=== PATIENT | female | born 1940 | race African-American/Black ===

== ENCOUNTER 2023-06-03 10:48 | Outpatient (AMB) | payer MEDICARE, SELFPAY ==
--- NOTE | 2023-06-03 10:49 | HO.NEPHOV ---
HPI HPI Comments History of Present Illness Details Ms. Barrett is a delightful 82-year-old female who has history of longstanding hypertension. She is not a diabetic. She has history of 1 small kidney. She is known to have a carotid bruit and peripheral arterial disease. Her blood pressure is currently well controlled on medications. She has history of HUGO last year. She denies any coronary artery disease, congestive heart failure, syncope, orthostatic symptoms, cardiac arrhythmia, CVA, renal stone, new bone or back pain pain. She does not have any epistaxis, photosensitivity, new skin rashes, joint swellings, pedal edema or urinary symptoms. She is compliant with her medications. Her serum creatinine is currently at baseline. She had seen vascular surgeon in [facility] as well as Dr. Garnett director cloud transformation with [facility]. She claims that she had Doppler of her renal arteries which is going to be repeated by her director cloud transformation soon, results of which were not available at the time of this office visit for me to review. [facility] Medical History (Updated 06/03/23 @ 10:58 by Kiel Paris MD) Bilateral carotid artery stenosis Hypertension Hyperlipidemia Peripheral vascular disease Surgical History (Updated 06/03/23 @ 10:57 by Mary Torres MA) History of back surgery History of hysterectomy Family History (Updated 06/03/23 @ 09:32 by Mary Torres MA) Mother Heart disease Sister PAD (peripheral artery disease) CAD (coronary artery disease) Social History (Updated 06/03/23 @ 10:57 by Mary Torres MA) Alcohol intake: former Patient Tobacco Use Status: Former Tobacco user Vital Signs 06/03/23 10:50 Height 5 ft 3 in Weight 184 lb 4 oz BMI 32.6 BP 138/60 Blood Pressure Location Rt brachial Position Sitting Pulse 66 Pulse Source Pulse Oximeter Pulse Oximetry (%) 97 Oxygen Delivery Method Room Air Physical Exam Vital Signs: Last Vital Signs Pulse 66 06/03/23 10:50 BP 138/60 06/03/23 10:50 Pulse Ox 97 06/03/23 10:50 Oxygen Delivery Method Room Air 06/03/23 10:50 BMI result Body Mass Index 32.6 Const General: comfortable and no acute distress Orientation/consciousness: patient oriented x3 HEENT Head: Yes normocephalic Mouth: Normal oral and palatal mucosa present Eyes EOM: EOMs intact bilaterally Neck Other: right carotid bruit + Neck: Yes supple Resp Auscultation: clear to auscultation bilaterally Cardio Jugular venous distension: no JVD Rate: regular rate GI Palpation (GI): Soft to palpation Auscultation: normal bowel sounds General: Yes no CVA tenderness Back/Spine/Pelvis Back: no CVA tenderness Skin General skin exam: no rashes or lesions noted Neuro General: patient oriented x3 and moves all extremities Extrem General: Yes no pedal edema Assessment & Plan Assessment & Plan (1) CKD (chronic kidney disease) stage 2, GFR 60-89 ml/min: Code(s): N18.2 - Chronic kidney disease, stage 2 (mild) (2) Hypertension: Code(s): I10 - Essential (primary) hypertension Qualifiers: Hypertension type: primary hypertension Qualified Code(s): I10 - Essential (primary) hypertension Plan Ms. 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 She has hypertension. She is known to have peripheral arterial disease and carotid bruit. She had HUGO last year which has resolved. Her renal functions are currently stable with normal serum potassium. She is tolerating angiotensin receptor sheila. She had Doppler of her renal arteries by her director cloud transformation which apparently is going be repeated soon by him(results were not available for review by me at the time this office visit). She avoids nonsteroidal anti-inflammatories. She is not known to have any proteinuria. She will benefit from a bit of weight loss. I ordered repeat blood work and has requested previous imaging studies for review. Clinically there is no indication for any angioplasty of renal artery even if she has significant stenosis given stable GFR , well controlled blood pressure without any history of heart failure. If indicated, I shall consider doing a formal renal angiogram in the future. She needs to keep her lipid profile optimal. All these have been explained in detail. All questions answered. Follow-up given. Orders: Orders Electrolytes 06/03/23 I10 - Essential (primary) hypertension, N18.2 - Chronic kidney disease, stage 2 (mild) Blood Urea Nitrogen 06/03/23 I10 - Essential (primary) hypertension, N18.2 - Chronic kidney disease, stage 2 (mild) Creatinine 06/03/23 I10 - Essential (primary) hypertension, N18.2 - Chronic kidney disease, stage 2 (mild) Coding Level of Care Code New Pt Level 4 (68650) Diagnoses CKD (chronic kidney disease) stage 2, GFR 60-89 ml/min N18.2 Primary hypertension I10 Hypertension type: primary hypertension Results Reviewed Nephrology Results: No Data to Display
[2023-06-03 10:50] VITALS: BP 138/60; PULSE 66; O2SAT 97; BMI 32.6
== END 2023-06-03 11:17 | disposition home or self-care (01) ==
PROVIDERS: PCP Internal Medicine; Visit Provider Internal Medicine Nephrology
DX: I12.9 Hypertensive chronic kidney disease with stage 1 through stage 4 chronic kidney disease, or unspecified chronic kidney disease (principal); N18.2 Chronic kidney disease, stage 2 (mild)
CPT/HCPCS: 99204

== ENCOUNTER → 2023-06-03 10:48 | Outpatient (BNVA) | payer MEDICARE, SELFPAY | PROVIDERS: PCP Internal Medicine; Visit Provider Internal Medicine Nephrology | DX: I12.9 Hypertensive chronic kidney disease with stage 1 through stage 4 chronic kidney disease, or unspecified chronic kidney disease (principal); N18.2 Chronic kidney disease, stage 2 (mild) | CPT/HCPCS: 99202 ==

== ENCOUNTER 2023-12-18 10:26 | Outpatient (AMB) | payer MEDICARE, SELFPAY ==
--- NOTE | 2023-12-18 10:34 | HO.NEPHOV ---
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 Barrett is a delightful 82-year-old female who has history of longstanding hypertension. She is not a diabetic. She has history of 1 small kidney. She is known to have a carotid bruit and peripheral arterial disease and see Dr Hurtado. Her blood pressure is currently well controlled on medications. She has history of HUGO last year. She denies any coronary artery disease, congestive heart failure, syncope, orthostatic symptoms, cardiac arrhythmia, CVA, renal stone, new bone or back pain pain. She does not have any epistaxis, photosensitivity, new skin rashes, joint swellings, pedal edema or urinary symptoms. She is compliant with her medications. Her serum creatinine is currently close to baseline. She had seen Dr. Garnett neon sign erector with [facility]. [facility] Medical History (Updated 12/18/23 @ 11:00 by Kiel Paris MD) Bilateral carotid artery stenosis Hypertension Hyperlipidemia Peripheral vascular disease Surgical History History of back surgery History of hysterectomy Family History Mother Heart disease Sister PAD (peripheral artery disease) CAD (coronary artery disease) Social History Alcohol intake: former Patient Tobacco Use Status: Former Tobacco user Physical Exam Vital Signs: Last Vital Signs BP 118/62 12/18/23 10:35 BMI result Body Mass Index 32.1 Const General: comfortable and no acute distress Orientation/consciousness: patient oriented x3 HEENT Head: Yes normocephalic Mouth: Normal oral and palatal mucosa present Eyes EOM: EOMs intact bilaterally Neck Neck: Yes supple Resp Auscultation: clear to auscultation bilaterally Cardio Jugular venous distension: no JVD Rate: regular rate GI Palpation (GI): Soft to palpation Auscultation: normal bowel sounds General: Yes no CVA tenderness Back/Spine/Pelvis Back: no CVA tenderness Skin General skin exam: no rashes or lesions noted Neuro General: patient oriented x3 and moves all extremities Extrem General: Yes no pedal edema Results Reviewed Nephrology Results: No Data to Display Assessment & Plan Assessment & Plan (1) Hypertension: Code(s): I10 - Essential (primary) hypertension Category: Medical Qualifiers: Hypertension type: primary hypertension Qualified Code(s): I10 - Essential (primary) hypertension (2) CKD stage 3a, GFR 45-59 ml/min: Code(s): N18.31 - Chronic kidney disease, stage 3a Category: Medical Plan Ms. Barrett has very CKD from renovascular disease. She has hypertension. She is known to have peripheral arterial disease and carotid bruit. She is tolerating angiotensin receptor sheila which I shall back off if her serum creatinine rises. I ordered Doppler of her renal arteries . She avoids nonsteroidal anti-inflammatories. She is not known to have any proteinuria. She will benefit from a bit of weight loss. I ordered repeat blood work . Clinically there is no indication for any angioplasty of renal artery even if she has significant stenosis given stable GFR , well controlled blood pressure without any history of heart failure. If indicated, I shall consider doing a formal renal angiogram in the future. She needs to keep her lipid profile optimal. All these have been explained in detail. All questions answered. Follow-up given. Orders: Orders Creatinine Today I10 - Essential (primary) hypertension, N18.31 - Chronic kidney disease, stage 3a Blood Urea Nitrogen Today I10 - Essential (primary) hypertension, N18.31 - Chronic kidney disease, stage 3a US renal doppler Today I10 - Essential (primary) hypertension, N18.31 - Chronic kidney disease, stage 3a US renal BI Today I10 - Essential (primary) hypertension, N18.31 - Chronic kidney disease, stage 3a Electrolytes Today I10 - Essential (primary) hypertension, N18.31 - Chronic kidney disease, stage 3a Coding Level of Care Code Est Pt Level 4 (28460) Diagnoses Primary hypertension I10 Hypertension type: primary hypertension CKD stage 3a, GFR 45-59 ml/min N18.31
[2023-12-18 10:35] VITALS: BP 118/62; BMI 32.1
== END 2023-12-18 11:05 | disposition home or self-care (01) ==
PROVIDERS: PCP Internal Medicine; Visit Provider Internal Medicine Nephrology
DX: I10 Essential (primary) hypertension (principal); N18.31 Chronic kidney disease, stage 3a
CPT/HCPCS: 99214

== ENCOUNTER → 2023-12-18 10:26 | Outpatient (BNVA) | payer MEDICARE, SELFPAY | PROVIDERS: PCP Internal Medicine; Visit Provider Internal Medicine Nephrology | DX: I12.9 Hypertensive chronic kidney disease with stage 1 through stage 4 chronic kidney disease, or unspecified chronic kidney disease (principal); N18.31 Chronic kidney disease, stage 3a | CPT/HCPCS: 99212 ==

== ENCOUNTER 2023-12-25 13:42 | Outpatient (REF) | payer MEDICARE, SELFPAY ==
[2023-12-25 18:13] LABS: Anion Gap 12 (12-20); Blood Urea Nitrogen 40 mg/dL (9-16); Carbon Dioxide 23 mmol/L (22-29); Chloride 106 mmol/L (96-108); Estimated Glomerular Filt Rate 35; Potassium 5.3 mmol/L (3.3-5.1); Sodium 136 mmol/L (135-145)
== END 2023-12-25 13:43 | disposition home or self-care (01) ==
LOC: HO.HKASLDS 13:42
PROVIDERS: Visit Provider Internal Medicine Nephrology
DX: I12.9 Hypertensive chronic kidney disease with stage 1 through stage 4 chronic kidney disease, or unspecified chronic kidney disease (principal); N18.2 Chronic kidney disease, stage 2 (mild); N18.31 Chronic kidney disease, stage 3a
CPT/HCPCS: 36415; 80051; 82565; 84520

== ENCOUNTER 2023-12-30 09:43 | Outpatient (REF) | payer MEDICARE, SELFPAY ==
--- NOTE | ~2023-12-30 | US_ITS ---
EXAMINATION: ULTRASOUND RENAL WITH DOPPLER CLINICAL INFORMATION: Chronic kidney disease, stage 3A. Need to rule out renal artery stenosis. COMPARISON: None. TECHNIQUE: Real-time grayscale, color Doppler, and duplex Doppler evaluation of the kidneys and renal vasculature was performed. FINDINGS: RENAL MEASUREMENTS: Right: 8.6 x 4.0 x 4.1 cm (Sag x AP x TV) Left: 9.3 x 4.9 x 4.1 cm (Sag x AP x TV) The renal parenchyma appears echogenic. No hydronephrosis or nephrolithiasis. DOPPLER INTERROGATION: AORTA: Mid aorta: 112 cm/sec RIGHT MAIN RENAL ARTERY: Proximal: 165 cm/sec Mid: 170 cm/sec Distal: 140 cm/sec LEFT MAIN RENAL ARTERY: Proximal: 154 cm/sec Mid: 146 cm/sec Distal: 138 cm/sec RENAL-AORTIC RATIO (RAR): Right: Not calculated due to mid aortic velocity outside of range 40-100 cm/s making RAR inaccurate. Left: Not calculated due to mid aortic velocity outside of range 40-100 cm/s making RAR inaccurate. SEGMENTAL RESISTIVE INDICES: Right: 0.75-0.84 Left: 0.78-0.85 RENAL VEINS: Right: Patent with normal waveform. Left: Patent with normal waveform. US/US renal doppler IMPRESSION: Small echogenic kidneys with elevated resistive indices consistent with chronic medical renal disease. No evidence of hemodynamically significant renal artery stenosis.
--- NOTE | ~2023-12-30 | US_ITS ---
EXAMINATION: ULTRASOUND RENAL WITH DOPPLER CLINICAL INFORMATION: Chronic kidney disease, stage 3A. Need to rule out renal artery stenosis. COMPARISON: None. TECHNIQUE: Real-time grayscale, color Doppler, and duplex Doppler evaluation of the kidneys and renal vasculature was performed. FINDINGS: RENAL MEASUREMENTS: Right: 8.6 x 4.0 x 4.1 cm (Sag x AP x TV) Left: 9.3 x 4.9 x 4.1 cm (Sag x AP x TV) The renal parenchyma appears echogenic. No hydronephrosis or nephrolithiasis. DOPPLER INTERROGATION: AORTA: Mid aorta: 112 cm/sec RIGHT MAIN RENAL ARTERY: Proximal: 165 cm/sec Mid: 170 cm/sec Distal: 140 cm/sec LEFT MAIN RENAL ARTERY: Proximal: 154 cm/sec Mid: 146 cm/sec Distal: 138 cm/sec RENAL-AORTIC RATIO (RAR): Right: Not calculated due to mid aortic velocity outside of range 40-100 cm/s making RAR inaccurate. Left: Not calculated due to mid aortic velocity outside of range 40-100 cm/s making RAR inaccurate. SEGMENTAL RESISTIVE INDICES: Right: 0.75-0.84 Left: 0.78-0.85 RENAL VEINS: Right: Patent with normal waveform. Left: Patent with normal waveform. US/US renal BI IMPRESSION: Small echogenic kidneys with elevated resistive indices consistent with chronic medical renal disease. No evidence of hemodynamically significant renal artery stenosis.
== END 2023-12-30 09:44 | disposition home or self-care (01) ==
LOC: HO.HMGCX 09:43
PROVIDERS: PCP Internal Medicine; Visit Provider Internal Medicine Nephrology
DX: I12.9 Hypertensive chronic kidney disease with stage 1 through stage 4 chronic kidney disease, or unspecified chronic kidney disease (principal); N18.31 Chronic kidney disease, stage 3a
CPT/HCPCS: 76775; 93975

== ENCOUNTER 2024-01-23 13:57 | Outpatient (AMB) | payer MEDICARE, SELFPAY ==
[2024-01-23 14:26] VITALS: BP 134/60; PULSE 59; O2SAT 96; BMI 32.6
--- NOTE | 2024-01-23 14:26 | HO.NEPHOV_ITS ---
Vital Signs 01/23/24 14:26 Height 5 ft 3 in Weight 184 lb BMI 32.6 BP 134/60 Blood Pressure Location Rt brachial Position Sitting Pulse 59 Pulse Source Pulse Oximeter Pulse Oximetry (%) 96 Oxygen Delivery Method Room Air Intake Visit Reasons: Sooner Appt per [employer] Teacher Required: No Accompanied by: Self / Same As Patient Allergies moxifloxacin Allergy (Verified 01/23/24 14:29) Unknown nitrofurantoin Allergy (Verified 01/23/24 14:29) Unknown tetanus and diphtheria toxoids Allergy (Verified 01/23/24 14:29) Unknown HPI Comments Details: Ms. Barrett is a delightful 82-year-old female who has history of longstanding hypertension. She is not a diabetic. She has history of 1 small kidney. She is known to have a carotid bruit and peripheral arterial disease and see Dr Hurtado. Her blood pressure is currently well controlled on medications. She has history of HUGO last year. She denies any coronary artery disease, congestive heart failure, syncope, orthostatic symptoms, cardiac arrhythmia, CVA, renal stone, new bone or back pain pain. She does not have any epistaxis, photosensitivity, new skin rashes, joint swellings, pedal edema or urinary symptoms. She is compliant with her medications. Her serum creatinine is currently close to baseline. She had seen Dr. Garnett compliance technician with [facility]. Her K is high normal. [facility] Medical History (Updated 01/23/24 @ 14:42 by Kiel Paris MD) Bilateral carotid artery stenosis Hypertension Hyperlipidemia Peripheral vascular disease Surgical History History of back surgery History of hysterectomy Family History Mother Heart disease Sister PAD (peripheral artery disease) CAD (coronary artery disease) Social History Alcohol intake: former Patient Tobacco Use Status: Former Tobacco user Physical Exam Vital Signs: Last Vital Signs Pulse 59 01/23/24 14:26 BP 134/60 01/23/24 14:26 Pulse Ox 96 01/23/24 14:26 Oxygen Delivery Method Room Air 01/23/24 14:26 BMI result Body Mass Index 32.6 Const General: comfortable and no acute distress Orientation/consciousness: patient oriented x3 HEENT Head: Yes normocephalic Mouth: Normal oral and palatal mucosa present Eyes EOM: EOMs intact bilaterally Neck Neck: Yes supple Resp Auscultation: clear to auscultation bilaterally Cardio Jugular venous distension: no JVD Rate: regular rate GI Palpation (GI): Soft to palpation Auscultation: normal bowel sounds General: Yes no CVA tenderness Back/Spine/Pelvis Back: no CVA tenderness Skin General skin exam: no rashes or lesions noted Neuro General: patient oriented x3 and moves all extremities Extrem General: Yes no pedal edema Results Reviewed Nephrology Results: Sodium 136 mmol/L (135-145) 12/25/23 Potassium 5.3 mmol/L (3.3-5.1) H 12/25/23 Chloride 106 mmol/L (96-108) 12/25/23 Carbon Dioxide 23 mmol/L (22-29) 12/25/23 BUN 40 mg/dL (9-16) H 12/25/23 Creatinine 1.43 mg/dL (0.5-1.4) H 12/25/23 Renal US 12/30/23 Assessment & Plan Assessment & Plan (1) CKD stage 3a, GFR 45-59 ml/min: Code(s): N18.31 - Chronic kidney disease, stage 3a Category: Medical (2) Hypertension: Code(s): I10 - Essential (primary) hypertension Category: Medical Qualifiers: Hypertension type: primary hypertension Qualified Code(s): I10 - Essential (primary) hypertension (3) Hyperkalemia: Code(s): E87.5 - Hyperkalemia Category: Medical Plan Ms. Barrett has very CKD from renovascular disease. She has hypertension. She is known to have peripheral arterial disease and carotid bruit. She is tolerating angiotensin receptor sheila which I shall back off if her serum creatinine rises. She avoids nonsteroidal anti-inflammatories. She is not known to have any proteinuria. She will benefit from a bit of weight loss. I ordered Kionex 30 Gram once a week and repeat blood work . Clinically there is no indication for any angioplasty of renal artery even if she has significant stenosis given stable GFR , well controlled blood pressure without any history of heart failure. If indicated, I shall consider doing a formal renal angiogram in the future. She needs to keep her lipid profile optimal. All these have been explained in detail. All questions answered. Follow-up given Orders: Orders Creatinine Today E87.5 - Hyperkalemia, I10 - Essential (primary) hypertension, N18.31 - Chronic kidney disease, stage 3a Blood Urea Nitrogen Today E87.5 - Hyperkalemia, I10 - Essential (primary) hypertension, N18.31 - Chronic kidney disease, stage 3a Electrolytes Today E87.5 - Hyperkalemia, I10 - Essential (primary) hypertension, N18.31 - Chronic kidney disease, stage 3a Medications: New sodium polystyrene sulfonate 30 grams orally once a week; 453.6 grams 3RF Coding Level of Care Code Est Pt Level 4 (19684) Diagnoses CKD stage 3a, GFR 45-59 ml/min N18.31 Primary hypertension I10 Hypertension type: primary hypertension Hyperkalemia E87.5
== END 2024-01-23 14:49 | disposition home or self-care (01) ==
PROVIDERS: PCP Internal Medicine; Visit Provider Internal Medicine Nephrology
DX: N18.31 Chronic kidney disease, stage 3a (principal); I10 Essential (primary) hypertension; E87.5 Hyperkalemia
CPT/HCPCS: 99214

== ENCOUNTER → 2024-01-23 13:57 | Outpatient (BNVA) | payer MEDICARE, SELFPAY | PROVIDERS: PCP Internal Medicine; Visit Provider Internal Medicine Nephrology | DX: I12.9 Hypertensive chronic kidney disease with stage 1 through stage 4 chronic kidney disease, or unspecified chronic kidney disease (principal); N18.31 Chronic kidney disease, stage 3a; E87.5 Hyperkalemia; N27.0 Small kidney, unilateral; I73.9 Peripheral vascular disease, unspecified; Z79.899 Other long term (current) drug therapy | CPT/HCPCS: 99212 ==

== ENCOUNTER 2024-04-01 11:02 | Outpatient (AMB) | payer MEDICARE, SELFPAY ==
--- NOTE | 2024-04-01 11:25 | HO.NEPHOV ---
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 Barrett is a delightful 82-year-old female who has history of longstanding hypertension. She is not a diabetic. She has history of 1 small kidney. She is known to have a carotid bruit and peripheral arterial disease and see Dr Hurtado. Her blood pressure is currently well controlled on medications. She has history of HUGO last year. She denies any coronary artery disease, congestive heart failure, syncope, orthostatic symptoms, cardiac arrhythmia, CVA, renal stone, new bone or back pain pain. She does not have any epistaxis, photosensitivity, new skin rashes, joint swellings, pedal edema or urinary symptoms. She is compliant with her medications. Her serum creatinine is currently close to baseline. She had seen Dr. Garnett loading supervisor with [facility]. Her K is high normal [facility] Medical History (Updated 01/23/24 @ 14:42 by Kiel Paris MD) Bilateral carotid artery stenosis Hypertension Hyperlipidemia Peripheral vascular disease Surgical History History of back surgery History of hysterectomy Family History Mother Heart disease Sister PAD (peripheral artery disease) CAD (coronary artery disease) Social History Alcohol intake: former Patient Tobacco Use Status: Former Tobacco user Review of Systems Const All systems reviewed & are unremarkable except as noted in HPI and below Physical Exam Vital Signs: Last Vital Signs Pulse 60 04/01/24 11:26 BP 120/50 L 04/01/24 11:26 Pulse Ox 99 04/01/24 11:26 Oxygen Delivery Method Room Air 04/01/24 11:26 BMI result Body Mass Index 31.4 Const General: comfortable and no acute distress Orientation/consciousness: patient oriented x3 HEENT Head: Yes normocephalic Mouth: Normal oral and palatal mucosa present Eyes EOM: EOMs intact bilaterally Neck Neck: Yes supple Resp Auscultation: clear to auscultation bilaterally Cardio Jugular venous distension: no JVD Rate: regular rate GI Palpation (GI): Soft to palpation Auscultation: normal bowel sounds General: Yes no CVA tenderness Back/Spine/Pelvis Back: no CVA tenderness Skin General skin exam: no rashes or lesions noted Neuro General: patient oriented x3 and moves all extremities Extrem General: Yes no pedal edema Results Reviewed Nephrology Results: Sodium 136 mmol/L (135-145) 12/25/23 Potassium 5.3 mmol/L (3.3-5.1) H 12/25/23 Chloride 106 mmol/L (96-108) 12/25/23 Carbon Dioxide 23 mmol/L (22-29) 12/25/23 BUN 40 mg/dL (9-16) H 12/25/23 Creatinine 1.43 mg/dL (0.5-1.4) H 12/25/23 Renal US 12/30/23 Assessment & Plan Assessment & Plan (1) CKD stage 3a, GFR 45-59 ml/min: Code(s): N18.31 - Chronic kidney disease, stage 3a Category: Medical (2) Hypertension: Code(s): I10 - Essential (primary) hypertension Category: Medical Qualifiers: Hypertension type: primary hypertension Qualified Code(s): I10 - Essential (primary) hypertension (3) Hyperkalemia: Code(s): E87.5 - Hyperkalemia Category: Medical Plan Ms. aBrrett has very CKD from renovascular disease. She has hypertension. She is known to have peripheral arterial disease and carotid bruit. She is tolerating angiotensin receptor sheila which I shall back off if her serum creatinine rises. She avoids nonsteroidal anti-inflammatories. She is not known to have any proteinuria. She will benefit from a bit of weight loss. Clinically there is no indication for any angioplasty of renal artery even if she has significant stenosis given stable GFR , well controlled blood pressure without any history of heart failure. If indicated, I shall consider doing a formal renal angiogram in the future. She needs to keep her lipid profile optimal. All these have been explained in detail. All questions answered. Follow-up given Orders: Orders Blood Urea Nitrogen 4 Months E87.5 - Hyperkalemia, I10 - Essential (primary) hypertension, N18.31 - Chronic kidney disease, stage 3a Creatinine 4 Months E87.5 - Hyperkalemia, I10 - Essential (primary) hypertension, N18.31 - Chronic kidney disease, stage 3a Electrolytes 4 Months E87.5 - Hyperkalemia, I10 - Essential (primary) hypertension, N18.31 - Chronic kidney disease, stage 3a Coding Level of Care Code Est Pt Level 4 (53811) Diagnoses CKD stage 3a, GFR 45-59 ml/min N18.31 Primary hypertension I10 Hypertension type: primary hypertension Hyperkalemia E87.5
[2024-04-01 11:26] VITALS: BP 120/50; PULSE 60; O2SAT 99; BMI 31.4
== END 2024-04-01 11:51 | disposition home or self-care (01) ==
PROVIDERS: PCP Internal Medicine; Visit Provider Internal Medicine Nephrology
DX: N18.31 Chronic kidney disease, stage 3a (principal); I10 Essential (primary) hypertension; E87.5 Hyperkalemia
CPT/HCPCS: 99214

== ENCOUNTER → 2024-04-01 11:02 | Outpatient (BNVA) | payer MEDICARE, SELFPAY | PROVIDERS: PCP Internal Medicine; Visit Provider Internal Medicine Nephrology | DX: I12.9 Hypertensive chronic kidney disease with stage 1 through stage 4 chronic kidney disease, or unspecified chronic kidney disease (principal); N18.31 Chronic kidney disease, stage 3a; E87.5 Hyperkalemia | CPT/HCPCS: 99212 ==

== ENCOUNTER 2024-08-10 11:20 | Outpatient (AMB) | payer MEDICARE, SELFPAY ==
--- NOTE | 2024-08-10 11:42 | HO.NEPHOV_ITS ---
Vital Signs 08/10/24 11:44 Height 5 ft 3 in Weight 168 lb 4 oz BMI 29.8 BP 130/60 Blood Pressure Location Lt brachial Position Sitting Pulse 62 Pulse Source Pulse Oximeter Pulse Oximetry (%) 100 Oxygen Delivery Method Room Air Intake Visit Reasons: july follow up-[facility] National Sales Consultant Required: No Accompanied by: Self / Same As Patient Allergies moxifloxacin Allergy (Verified 08/10/24 11:44) Unknown nitrofurantoin Allergy (Verified 08/10/24 11:44) Unknown tetanus and diphtheria toxoids Allergy (Verified 08/10/24 11:44) Unknown HPI Comments Details: Ms. Barrett is a delightful 82-year-old female who has history of longstanding hypertension. She is a pre diabetic. She has history of 1 small kidney. She is known to have a carotid bruit and peripheral arterial disease and see Dr Hurtado. Her blood pressure is currently well controlled on medications. She has history of HUGO last year. She denies any coronary artery disease, congestive heart failure, syncope, orthostatic symptoms, cardiac arrhythmia, CVA, renal stone, new bone or back pain pain. She does not have any epistaxis, photosensitivity, new skin rashes, joint swellings, pedal edema or urinary symptoms. She is compliant with her medications. Her serum creatinine is currently close to baseline. She had seen Dr. Garnett mixing machine tender cork rod with [facility]. Her K is normal [facility] Medical History (Updated 01/23/24 @ 14:42 by Kiel Paris MD) Bilateral carotid artery stenosis Hypertension Hyperlipidemia Peripheral vascular disease Surgical History History of back surgery History of hysterectomy Family History Mother Heart disease Sister PAD (peripheral artery disease) CAD (coronary artery disease) Social History Alcohol intake: former Patient Tobacco Use Status: Former Tobacco user Review of Systems Const All systems reviewed & are unremarkable except as noted in HPI and below Physical Exam Vital Signs: Last Vital Signs Pulse 62 08/10/24 11:44 BP 130/60 08/10/24 11:44 Pulse Ox 100 08/10/24 11:44 Oxygen Delivery Method Room Air 08/10/24 11:44 BMI result Body Mass Index 29.8 Const General: comfortable and no acute distress Orientation/consciousness: patient oriented x3 HEENT Head: Yes normocephalic Mouth: Normal oral and palatal mucosa present Eyes EOM: EOMs intact bilaterally Neck Neck: Yes supple Resp Auscultation: clear to auscultation bilaterally Cardio Jugular venous distension: no JVD Rate: regular rate GI Palpation (GI): Soft to palpation Auscultation: normal bowel sounds General: Yes no CVA tenderness Back/Spine/Pelvis Back: no CVA tenderness Skin General skin exam: no rashes or lesions noted Neuro General: patient oriented x3 and moves all extremities Extrem General: Yes no pedal edema Assessment & Plan Assessment & Plan (1) Hypertension: Code(s): I10 - Essential (primary) hypertension Category: Medical Qualifiers: Hypertension type: primary hypertension Qualified Code(s): I10 - Essential (primary) hypertension (2) CKD stage 3a, GFR 45-59 ml/min: Code(s): N18.31 - Chronic kidney disease, stage 3a Category: Medical (3) Hyperkalemia: Code(s): E87.5 - Hyperkalemia Category: Medical Plan 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 She has hypertension. She is known to have peripheral arterial disease and carotid bruit. She is tolerating angiotensin receptor sheila which I shall back off if her serum creatinine rises. She avoids nonsteroidal anti-inflammatories. She is not known to have any proteinuria. She will benefit from a bit of weight loss. Clinically there is no indication for any angioplasty of renal artery even if she has significant stenosis given stable GFR , well controlled blood pressure without any history of heart failure. If indicated, I shall consider doing a formal renal angiogram in the future. She needs to keep her lipid profile optimal. All these have been explained in detail. All questions answered. Follow-up given Orders: Orders Creatinine 6 Months E87.5 - Hyperkalemia, I10 - Essential (primary) hypertension, N18.31 - Chronic kidney disease, stage 3a Blood Urea Nitrogen 6 Months E87.5 - Hyperkalemia, I10 - Essential (primary) hypertension, N18.31 - Chronic kidney disease, stage 3a Electrolytes 6 Months E87.5 - Hyperkalemia, I10 - Essential (primary) hypertension, N18.31 - Chronic kidney disease, stage 3a Medications: Refilled sodium polystyrene sulfonate 30 grams orally once a week; 453.6 grams 3RF Coding Level of Care Code Est Pt Level 4 (89868) Diagnoses Primary hypertension I10 Hypertension type: primary hypertension CKD stage 3a, GFR 45-59 ml/min N18.31 Hyperkalemia E87.5
[2024-08-10 11:44] VITALS: BP 130/60; PULSE 62; O2SAT 100; BMI 29.8
--- OUTSIDE RECORDS SUMMARY | 2024-08-10 14:07 | XMS_ITS | Clinical Summary ---
Author Organization [facility] Address [address] [place] [address] Care Team Providers Care Bulwark Carpenter Name Role Phone Abraham Courtney MD Primary Care Provider [phone] Medications Medication Sig Dispensed Refills Start Date End Date Status spironolactone-hydroch lorothiazide (ALDACTAZIDE) 25-25 MG per tablet Take 1 tablet by mouth daily. 0 Active losartan (COZAAR) tablet 50 mg Take 100 mg by mouth daily. 0 Active amLODIPine (NORVASC) tablet 10 mg Take 10 mg by mouth daily. 0 Active omeprazole (PRILOSEC) 20 MG capsule Take 20 mg by mouth daily. 0 Active aspirin EC 81 MG tablet Take 81 mg by mouth daily. 0 Active nebivolol (BYSTOLIC) 10 MG tablet Take 10 mg by mouth daily. 0 Active vitamin B-6 (PYRIDOXINE) 25 MG tablet Take 25 mg by mouth daily. 0 Active Social History Tobacco Use Types Packs/Day Years Used Date Smoking Tobacco: Former Smokeless Tobacco: Former Alcohol Use Standard Drinks/Week Comments No 0 (1 standard drink = 0.6 oz pur e alcohol) Sex and Gender Information Value Date Recorded Sex Assigned at Not on file Gender Identity Not on file Sexual Orientation Not on file Plan of Treatment Health Maintenance Due Date Last Done Comments COVID-19 Vaccine (#1) 03/25/1941 Depression Screening 1954 Preventative Health Evaluation 1960 DTap / Tdap / Td (1 - Tdap) 1961 Shingrix-Zoster Vaccine (1 of 2) 1992 Fall Risk Assessment 09/23/2007 Osteoporosis Screening (DEXA Scan) 09/23/2007 Pneumococcal Vaccine (1 of 1 - PCV) 09/23/2007 RSV Adult > 60+ Yrs or Pregn ant (1 - 1-dose 75+ series) 2017 Influenza Vaccine (#1) 2024 Hepatitis B Vaccines Aged Out No long er eligible based on patient's age to complete this topic RSV Ped < 20 months Aged Out No longe r eligible based on patient's age to complete this topic Care Teams Bulwark Carpenter Relationship Specialty Start Date End Date Abraham Courtney MD PCP - General Internal Medicine 10/24/16
--- OUTSIDE RECORDS SUMMARY | 2024-08-10 14:07 | XMS_ITS | Clinical Summary ---
Author Organization [address] Address [address] [place] [phone] Phone Care Team Providers Care Stamper Blocker Name Role Phone Abraham Reyes MD Primary Care Provider [phone] Allergies Active Allergy Reactions Criticality Noted Date Comments Moxifloxacin 02/05/2022 Tetanus And Diphtheria Toxoids Low 02/05 Tetanus-Diphtheria Toxoids-Td 2018 Medications atorvastatin (LIPITOR) 80 mg tablet TAKE 1 TABLET BY MOUTH EVERY DAY NEED UPDATED INS 01/31/2023 Active spironolactone-h ydroCHLOROthiazi de (ALDACTAZIDE) 25-25 mg per tablet Take 1 tablet by mouth daily. Active losartan (COZAAR) 100 mg tablet Take 100 mg by mouth daily. Active amlodipine besylate (AMLODIPINE ORAL) Take 10 mg by mouth. Active omeprazole (PriLOSEC) [address] capsule Take 10 mg by mouth daily. Active carvediloL (COREG) 12.5 mg tablet Take 12.5 mg by mouth 2 times daily (with meals). Active aspirin 81 mg chewable tablet Take 81 mg by mouth daily. Active hydroCHLOROthiaz janette (HYDRODIURIL) 25 mg tablet Take 1 tablet (25 mg total) by mouth 1 (one) time each day. Active sodium polystyrene (KAYEXALATE) powder Take 30 g by mouth 1 (one) time. Active Active Problems Problem Noted Date Diagnosed Date Sleep apnea 06/10/2024 MIRANDA (dyspnea on exertion) 07/30/2023 Overview (05/05/2024): Last Assessment & Plan: She does endorse increased dyspnea on exertion since her last office visit. I will update nuclear stress testing as well as an echocardiogram to help further evaluate for ischemic process as well as any valvular abnormalities. PND (paroxysmal nocturnal dyspnea) 07/30/2023 Overview (05/05/2024): Last Assessment & Plan: I have ordered a sleep study to further evaluate for obstructive sleep apnea which could likely be contributing to the patient's symptoms as well as daytime fatigue. Precordial pain 02/07/2022 HTN (hypertension) 02/15/2019 Overview (05/05/2024): Last Assessment & Plan: Blood pressure well-controlled during today's exam with a reading of 120/72. She will continue on her current dose of spironolactone/hydrochlorothiazide as well as amlodipine and losartan. She will continue with diet and lifestyle modification to help further assist in lowering blood pressure. Encouraged to follow a low-salt low-fat diet, make purposeful strides towards weight loss, and engage in routine aerobic exercise as tolerated. Bilateral carotid artery stenosis 08/31/2018 Overview (05/05/2024): Last Assessment & Plan: Bilateral carotid bruits appreciated upon exam today. Right greater than left. Patient is now ready to pursue follow-up with Dr. Flowers for right carotid endarterectomy. She will continue on aspirin and statin therapy. Encounters Date Type Department Care Team Description 07/07/[address] [facility] [address] [place] [address] Karla Norman MA Referral (Sleep Medicine) 06/09/2024 9:20 AM EST Office Visit [facility] [address] [place] [phone] Smith Noonan MD Hypertension, unspecified type (Primary Dx); Sleep apnea, unspecified type from Last 3 Months Medical History Medical History Date Comments Bilateral carotid artery stenosis 08/31/2018 DX:Bilateral carotid artery stenosis HTN (hypertension) 02/15/2019 DX:HTN (hyper tension) Family History Medical History Relation Name Comments CABG Mother Other: Cardiac Other Relation Name Status Comments Mother Other Social History Tobacco Use Types Packs/Day Years Used Date Smoking Tobacco: Former Smokeless Tobacco: Never Alcohol Use Standard Drinks/Week Comments Never 0 (1 standard drink = 0.6 oz pur e alcohol) Comments Unknown Sex and Gender Information Value Date Recorded Sex Assigned at Not on file Legal Sex Female 9:53 AM EST Gender Identity Not on file Sexual Orientation Not on file Obstetrics History Last Filed Vital Signs Vital Sign Reading Time Taken Comments Blood Pressure 122/72 06/09/2024 9:38 AM EST Pulse 60 06/09/2024 9:38 AM EST Temperature - - Respiratory Rate - - Oxygen Saturation 97% 06/09/2024 9:38 AM EST Inhaled Oxygen Concentration - - Weight 78.5 kg (173 lb) 06/09/2024 9:38 AM EST Height 160 cm (5' 3 ) 06/09/2024 9:38 AM EST Body Mass Index 30.65 06/09/2024 9:38 AM EST Plan of Treatment Upcoming Encounters Date Type Department Care Team (Late st Contact Info) Description 11/30/2024 10:45 AM EDT Ancillary Procedure [facility] [address] [place] [address] 12/20/2024 9:40 AM EDT Office Visit [facility] [address] [place] [address] Jennifer Mccormick NP [address] [place] [address] [place] [address] 12/31/2024 10:30 AM EDT Office Visit [facility] [place] [address] [place] [address] Ayden Berg MD [address] [place] [address] Health Maintenance Due Date Last Done Comments DTaP,Tdap,and Td Vaccines (1 - Tdap) 1961 Pneumococcal Vaccine: 50+ Years (1 of 1 - PCV) 1992 Zoster Vaccines (1 of 2) 1992 RSV Immunization Patients 60+ Years Old (1 - 1-dose 75+ series) 2017 Depression Screening 04/26/2022 Falls Risk Assessment 04/26/2022 Medicare Annual Wellness Visit 04/26/2022 Social Influencers of Health Screening 04/26/2022 COVID-19 Vaccine ( season) 2024 03/06/2023, 02/20/2022, 11/13/2021, Additional history exists Hypertension/CHF/CAD Annual BMP Blood Test 03/30/2025 03/30/2024, 04/25/2023 Cholesterol Screening (Lipid Panel) 08/12/2028 08/13/2023 Osteoporosis Screening (Bone Density Screening) 12/01/2033 12/02/2023, 02/05/2019 Influenza Vaccine Completed 06/02/2024, , 03/15/2022, Additional history exists HIB Vaccines Aged Out No longer eligi ble based on patient's age to complete this topic HPV Vaccines Aged Out No longer eligi ble based on patient's age to complete this topic Hepatitis A Vaccines Aged Out No long er eligible based on patient's age to complete this topic Hepatitis B Vaccines Aged Out No long er eligible based on patient's age to complete this topic IPV Vaccines Aged Out No longer eligi ble based on patient's age to complete this topic MMR Vaccines Aged Out No longer eligi ble based on patient's age to complete this topic Meningococcal ACWY Vaccine Aged Out N o longer eligible based on patient's age to complete this topic Meningococcal B Vacine Aged Out No lo nger eligible based on patient's age to complete this topic RSV Immunization Patients Under 20 months Aged Out No longer eligible based on patient's age to complete this topic Varicella Vaccines Aged Out No longer eligible based on patient's age to complete this topic Procedures Procedure Name Priority Date/Time Associated Diagnosis Comments ECG 12-LEAD Routine 06/09/2024 9:46 AM EST Hypertension, unspecified type CREATININE, SERUM Routine 03/30/2024 10: 30 AM EST Hyperkaluria Chronic kidney disease, stage 3a (CMS/HCC) Hypertension, essential MANUELA DEXA AXIAL SKELETON Routine 12/02/2023 8:38 AM EDT Age-related osteoporosis without current pathological fracture LIPID PANEL Routine 08/13/2023 from Last 3 Months or Most Recently Relevant to Health Maintenance Results * ECG 12 lead (06/09/2024 9:46 AM EST) Ventricular Rate ECG 60 BPM GEMUSE Atrial Rate 60 BPM GEMUSE P-R Interval 214 ms GEMUSE QRS Duration 90 ms GEMUSE Q-T Interval 384 ms GEMUSE QTc 384 ms GEMUSE P Wave Waite 61 degrees GEMUSE R Waite 27 degrees GEMUSE T Waite 15 degrees GEMUSE ECG Interpretation Sinus rhythm with 1st degree A-V block Otherwise normal ECG When compared with ECG of 01-MAR-2019 11:23, No significant change was found Confirmed by SMITH NOONAN ([id number]) on 06/10/2024 6:33:52 AM GEMUSE 06/09/2024 9:46 AM EST 06/10/2024 6:33 AM EST us Smith Noonan MD ECG ORDERABLES Final Result GEMUSE * (ABNORMAL) Creatinine (03/30/2024 10:30 AM EST) Creatinine 1.26(H) 0.50 - 1.10 mg/dL LAB CHEMISTRY METHOD 03/30/2024 11:58 AM EST [facility] eGFR 43(L) >=60 mL/min/1. 73m2 LAB CHEMISTRY METHOD 03/30/2024 11:58 AM EST [facility] Comment:Calculation based on the??Chronic Kidney Disease Epidemiology Collaboration (CKD-EPI) equation refit??without adjustment for race. Blood Venous blood specimen / Unknown Venipuncture / Unknown 03/30/2024 10:30 AM EST 03/30/2024 10:58 AM EST us Kiel Paris MD LAB BLOOD ORDERABLES Final Resul t [facility] LAB [address] [place] [address], * MANUELA DEXA AXIAL SKELETON (12/02/2023 8:38 AM EDT) Anatomical Region Laterality Modality Mammography 12/01/2023 1:43 PM EDT Narrative 12/02/2023 8:38 AM EDT [facility] Diagnostic Imaging Department [address] [place] [address] Patient: ??WHITE,ANASTASIA M ?/Age/Sex: 1940 - 83 - F Unit#: ??[id number] ? Location/Status: ??SPDIMAM/REG CLI ? Mnemonic/Ordering Site: ??MAMDEXAAX/SPMAM Ordering Physician: ??ABRAHAM REYES MD Manuela Dexa Axial Skeleton - 12/01/23 - [id number] Report Status:Signed HISTORY: ??The patient is an 1.121-mgyt-mxn postmenopausal female with clinical concern for metabolic bone disease. FINDINGS: ??Dual energy x-ray absorptiometry of the lumbar spine and femurs is performed. The mean bone mineral density at L1-L4 (with the exclusion of L3) is 1.075 gm/cm2 which is 92% of that of young normals and 98% of that of age matched controls. This yields a T-score of -0.8 and a Z-score of -0.2 and there is therefore no evidence of osteoporosis or osteopenia here. The mean bone mineral density of the femurs bilaterally is 0.761 gm/cm2 which is 76% of that of young normals and 82% of that of age matched controls. ??This yields a T-score of -2.0 and a Z-score of -1.3 which is diagnostic of osteopenia. ??However, the T-score of the left femoral neck is -2.8 which is diagnostic of osteoporosis. IMPRESSION: 1. Osteoporosis. ??There has been a decrease of 5.9% in bone mineral density in the lumbar spine since the prior examination of 02/05/2019. ??There has been an increase of 0.6% in bone mineral density in the right femur and a decrease of 12.4% in bone mineral density in the left femur. 2. FRAX analysis yields a 10-year probability of major osteoporotic fracture of 6.8% and a 10-year probability of hip fracture of 1.9%. Code 79093 Dictating Physician: ??OCTAVIA PUGA MD Electronically Signed by: ??OCTAVIA PUGA MD Dic Date/Time: ??12/02/23 0837 Sign date/Time: ??12/02/23 0838 Procedure Note Octavia Puga MD - 03/03/2024 [facility] Diagnostic Imaging Department [address] [place], [place] [id number] Patient: ARABELLAANASTASIA D.O.B./Age/Sex: 1940 - 83 - F Unit#: [id number] Location/Status: SPDIMAM/REG CLI Mnemonic[facility] Ordering Physician: ABRAHAM REYES MD Manuela Dexa Axial Skeleton - 12/01/23 - [id number] Report Status:Signed HISTORY: The patient is an 1.565-wvvg-epw postmenopausal female withclinical concern for metabolic bone disease. FINDINGS: Dual energy x-ray absorptiometry of the lumbar spine and femursis performed. The mean bone mineral density at L1-L4 (with the exclusion ofL3) is 1.075 gm/cm2 which is 92% of that of young normals and 98% of that ofage matched controls. This yields a T-score of -0.8 and a Z-score of -0.2 andthere is therefore no evidence of osteoporosis or osteopenia here. The mean bone mineral density of the femurs bilaterally is 0.761 gm/qt0mrffr is 76% of that of young normals and 82% of that of age matched controls.This yields a T-score of -2.0 and a Z-score of -1.3 which is diagnostic of osteopenia. However, the T-score of the left femoral neck is -2.8 whichis diagnostic of osteoporosis. IMPRESSION: 1. Osteoporosis. There has been a decrease of 5.9% in bone mineraldensity in the lumbar spine since the prior examination of 02/05/2019. There has beenan increase of 0.6% in bone mineral density in the right femur and a decreaseof 12.4% in bone mineral density in the left femur. 2. FRAX analysis yields a 10-year probability of major osteoporoticfracture of 6.8% and a 10-year probability of hip fracture of 1.9%. Code 33671 Dictating Physician: OCTAVIA PUGA MD Electronically Signed by: OCTAVIA PUGA MD Dic Date/Time: 12/02/2337 Sign date/Time: 12/02/23837 Abraham Reyes MD IM BI PROCEDURES Final Resu lt * Lipid panel (08/13/2023) LDL/HDL Ratio 3 0 - 4 Triglycerides 82 0 - 150 mg/dL Cholesterol 160 0 - 200 mg/dL HDL 58 >=40 mg/dL LDL Cholesterol 86 0 - 100 mg/dL Blood Venous blood specimen / Unknown us Historical Provider LAB BLOOD ORDERABLES Isa l Result from Last 3 Months or Most Recently Relevant to Health Maintenance Insurance [employer] Care Teams Stamper Blocker Relationship Specialty Start Date End Date Abraham Reyes MD PCP - General Internal Medicine 04/30/18
== END 2024-08-10 11:58 | disposition home or self-care (01) ==
LOC: HO.HKAS 11:21
PROVIDERS: PCP Internal Medicine; Visit Provider Internal Medicine Nephrology
DX: I10 Essential (primary) hypertension (principal); N18.31 Chronic kidney disease, stage 3a; E87.5 Hyperkalemia
CPT/HCPCS: 99214

== ENCOUNTER → 2024-08-10 11:20 | Outpatient (BNVA) | payer MEDICARE, SELFPAY | PROVIDERS: PCP Internal Medicine; Visit Provider Internal Medicine Nephrology | DX: I12.9 Hypertensive chronic kidney disease with stage 1 through stage 4 chronic kidney disease, or unspecified chronic kidney disease (principal); N18.31 Chronic kidney disease, stage 3a; E87.5 Hyperkalemia; R73.03 Prediabetes; N27.9 Small kidney, unspecified; Z79.899 Other long term (current) drug therapy | CPT/HCPCS: 99212 ==

== ENCOUNTER 2025-02-07 12:26 | Outpatient (REF) | payer MEDICARE, SELFPAY ==
--- OUTSIDE RECORDS SUMMARY | 2024-12-02 10:15 | XMS_ITS ---
Author Organization [facility]
[2025-02-07 18:32] LABS: Anion Gap 12 (12-20); Blood Urea Nitrogen 36 mg/dL (9-16); Carbon Dioxide 25 mmol/L (22-29); Chloride 105 mmol/L (96-108); Estimated Glomerular Filt Rate 43; Potassium 4.5 mmol/L (3.3-5.1); Sodium 137 mmol/L (135-145)
== END 2025-02-07 12:27 | disposition home or self-care (01) ==
LOC: HO.HKASLDS 12:26
PROVIDERS: Visit Provider Internal Medicine Nephrology
DX: I12.9 Hypertensive chronic kidney disease with stage 1 through stage 4 chronic kidney disease, or unspecified chronic kidney disease (principal); N18.31 Chronic kidney disease, stage 3a; E87.5 Hyperkalemia
CPT/HCPCS: 36415; 80051; 82565; 84520

== ENCOUNTER 2025-02-08 11:25 | Outpatient (AMB) | payer MEDICARE, SELFPAY ==
--- OUTSIDE RECORDS SUMMARY | 2024-11-26 06:36 | XMS_ITS ---
Author Organization [facility] Address [address] [place] [phone] Care Team Providers Care Regional Tanker Truck Driver Name Role Phone FRANCIE REYES Primary Care Provider REASON FOR VISIT add on PROBLEMS Problem Type ICD Code Onset Dates Problem Status W/U Status Risk SNOMED Code Notes Problem Mild anemia (D64.9) Active confirmed [id number] Encounters Encounter Location Date Provider Diagnosis [address] [address] 11/26/2024 FRANCIE REYES Mild anemia D64.9 ASSESSMENTS Encounter Date Diagnosis Assessment Notes Treatment Notes Treatment Clinical Notes Section Notes 11/26/2024 Mild anemia (ICD-10 - D64.9) PLAN OF TREATMENT Future Test Test Name Order Date Iron and TIBC-[id number] 11/26/2024 Ferritin-[id number] 11/26/2024 Reticulocyte Count-[id number] 11/26/2024 Next Appt Details Provider Name:FRANCIE CRUM, 07/05/2025 11:30:00 AM, [address] [place] [address], [phone],
--- OUTSIDE RECORDS SUMMARY | 2024-12-02 10:15 | XMS_ITS ---
Author Organization [facility] Address [address] [place] [phone] Care Team Providers Care Saddle Stitcher Name Role Phone FRANCIE REYES Primary Care Provider REASON FOR VISIT 42 6mo F/U Encounters Encounter Location Date Provider Diagnosis [address] [address] 12/02/2024 FRANCIE REYES PLAN OF TREATMENT Next Appt Details Provider Name:FRANCIE CRUM, 07/05/2025 11:30:00 AM, [address] [place], [address],
--- OUTSIDE RECORDS SUMMARY | 2024-12-29 04:14 | XMS_ITS ---
Author Organization [facility] Address [address] [place] [phone] Care Team Providers Care Suspender Cutter Name Role Phone FRANCIE REYES Primary Care Provider [phone] REASON FOR VISIT diarrhea Encounters Encounter Location Date Provider Diagnosis [facility] [address] [place] [phone] 12/29/2024 FRANCIE REYES PLAN OF TREATMENT Next Appt Details Provider Name:FRANCIE CRUM, 07/05/2025 11:30:00 AM, [address] [place], [phone],
--- OUTSIDE RECORDS SUMMARY | 2024-12-29 07:45 | XMS_ITS ---
Author Organization [facility] Address [address] [place] [phone] Care Team Providers Care Safety Net Maker Name Role Phone FRANCIE REYES Primary Care Provider ALLERGIES Allergen (clinical drug ingredient) Drug/Non Drug Allergy documented on EMR Reaction Allergy Type Onset Date Status DPT (uncoded) Unknown Allergy Active nitrofurantoin, macrocrystals / nitrofurantoin, monohydrate Nitrofurantoin Monohyd Macro hives Drug Allergy Active REASON FOR REFERRAL Reason 12/29/24 w appt Refe rral to [facility] for colonoscopy Diagnosis 1 Colon cancer screeni (Z12.11) [facility] Referring Provider First Name FRANCIE Referring Provider Last Name ERIC Referring Provider Speciality Internal M edicine Referred Provider JESSICA ABDI Referred Provider Specialty Gastroentero logy General Notes Pat THOMPSON Admin 12:50:37 PM > Faxed medical referral, note and most recent labs to [phone] Referral Priority Routine REASON FOR VISIT diarhea MEDICATIONS Medication SIG (Take, Route, Frequency, Duration) Notes Start Date End Date Status Losartan Potassium-HCTZ 100- 25 MG TAKE 1 TABLET BY MOUTH EVERY DAY Orally Once a day for 90 days Active Pantoprazole Sodium 20 MG TAKE 1 TABLET BY MOUTH EVERY DAY for 90 Active Spironolactone 25 MG TAKE 1 TABLET BY MOUTH EVERY DAY FOR 90 DAYS for 90 Active amLODIPine Besylate 10 MG TAKE 1 TABLET BY MOUTH EVERY DAY for 90 Active Carvedilol 12.5 MG TAKE 1 TABLET BY MOUTH TWICE A DAY for 90 Active Vitamin D3 25 MCG (1000 UT) 1 tab(s) ora lly once a day Active Atorvastatin Calcium 80 MG TAKE 1 TABLET BY MOUTH EVERY DAY for 90 Active Sodium Polystyrene Sulfonate 30 GM/120ML 120 mL Rectal every 6 hrs for 30 day(s) Active Aspir-Low 81 MG 1 tab(s) orally once a day Active Alendronate Sodium 70 MG TAKE 1 TABLET B Y MOUTH 30 MINUTES BEFORE FIRST FOOD, BEVERAGE OR MEDICINE WITH PLAIN WATER WEEKLY for 90 Active Multivitamin - 1 tablet Orally Once a day for 30 day(s) Active hydroCHLOROthiazide 25 MG 1 tablet in th e morning Orally Once a day for 30 day(s) Active SOCIAL HISTORY Tobacco Use: Social History Observation Description Date Details (start date - stop date) Former Smoker NA - NA Sex Assigned At : Social History Observation Description Sex Assigned At Unknown Smoking Question Answer Notes Are you a: former smoker How long has it been since you last smoked? > 10 years Section Notes: p VITAL SIGNS Height 61.25 in 12/29/2024 Weight 162.2 lbs 12/29/2024 Blood pressure systolic 138 mm Hg 12/30/19 25 Blood pressure diastolic 62 mm Hg 025 BMI 30.39 kg/m2 12/29/2024 Encounters Encounter Location Date Provider Diagnosis [facility] [address] [place] [address] 12/29/2024 FRANCIE REYES Acute diarrhea R19.7 ; Essential (primary) hypertension I10 ; Disorder of lipoprotein metabolism, unspecified E78.9 ; Gastro-esophageal reflux disease without esophagitis K21.9 ; Type 2 diabetes mellitus without complications E11.9 ; Chronic kidney disease, unspecified N18.9 and Colon cancer screening Z12.11 ASSESSMENTS Encounter Date Diagnosis Assessment Notes Treatment Notes Treatment Clinical Notes Section Notes 12/29/2024 Acute diarrhea (ICD-10 - R19.7) Probable acute infectious diarrhea. Therefore bland diet. No dairy for at least 3 to 4 days. Keep well-hydrated. Can use bnas-bal-qnfbdk r Imodium to slow things down little bit check CBC electrolytes. Follow-up in 3 to 5 days if no improvement 12/29/2024 Essential (primary) hypertension (ICD-10 - I10) Blood pressure stable well-controlled no change in therapy 12/29/2024 Disorder of lipoprotein metabolism, unspecified (ICD-10 - E78.9) Stable continue statin therapy LDL goal less than 100 12/29/2024 Gastro-esophageal reflux disease without esophagitis (ICD-10 - K21.9) 12/29/2024 Type 2 diabetes mellitus without complications (ICD-10 - E11.9) Stable doing well check blood sugar follow-up A1c every 6 months 12/29/2024 Chronic kidney disease, unspecified (ICD-10 - N18.9) 12/29/2024 Colon cancer screening (ICD-10 - Z12.11) Referral to [facility] for colonoscopy PLAN OF TREATMENT Treatment Notes Assessment Notes Acute diarrhea Probable acute infec tious diarrhea. Therefore bland diet. No dairy for at least 3 to 4 days. Keep well-hydrated. Can use duup-eky-dvvdhhs Imodium to slow things down little bit check CBC electrolytes. Follow-up in 3 to 5 days if no improvement Essential (primary) hypertension Blood p ressure stable well-controlled no change in therapy Disorder of lipoprotein meta bolism, unspecified Stable continue statin therapy LDL goal less than 100 Type 2 diabetes mellitus wit hout complications Stable doing well check blood sugar follow-up A1c every 6 months Colon cancer screening Referral to [facility] for colonoscopy Referrals Referral Date Details 12/29/24 w appt Refe rral to [facility] for colonoscopy, JESSICA ABDI Next Appt Details Follow Up: Keep scheduled OB follow-up labs pending, Reason: Provider Name:FRANCIE CRUM, 07/05/2025 11:30:00 AM, [address] [place] [address], [phone], Progress Notes * Examination Category Sub-Category Detail Notes Category Not es General Examination HEENT: Conjunctiva pink anicteric mucous membranes moist oropharynx clear TMs clear sinus clear EACs clear I will call in the referral and Neck: Supple (plus no brui ts lymphadenopathy or thyromegaly Heart: Regular rate and rhy thm no murmurs rubs or gallops Lungs: clear to auscultatio n Abdomen: soft, non tender/non distended, no rebound tenderness, no guarding or rigidity, no masses palpated, no hepatosplenomegaly, normal active bowel sounds Extremities: no clubbing , cyanos is, or edema, pulses 2 plus bilaterally General Appearance Pleasant well-develo ped well-nourished white female. Stated age no apparent distress Neuro alert and oriented x 3, CN 2-12 intact, motor 5/5 bilaterally proximally and distally in all 4 extremities, no focal abnormality History and Physical Notes * HPI (History of Present Illness) Category Sub-Category Detail Notes Category Not es General Diarrhea. Sympt oms began approxi-4 days ago. Coincided with having had [place] food a day or so before this. Bowel movements are not excessive maybe 2-3 a day times. They are loose not watery. Some mild cramping no blood no fever no chills no sweats no nausea or vomiting Consultation Request Notes Referral Date Referring Provider Referred Provider Not es 12/29/2024 FRANCIE REYES JOANNA 12/29/24 w appt Referral to [facility] for colonoscopy
--- OUTSIDE RECORDS SUMMARY | 2024-12-30 04:16 | XMS_ITS ---
Author Organization 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
--- NOTE | 2025-02-08 11:32 | HO.NEPHOV ---
Vital Signs 02/08/25 11:35 Height 5 ft 3 in Weight 161 lb 6 oz BMI 28.6 BP 102/54 L Blood Pressure Location Lt brachial Position Sitting Pulse 66 Pulse Source Pulse Oximeter Pulse Oximetry (%) 100 Oxygen Delivery Method Room Air Intake Visit Reasons: 6mon follow-up w/labs-Conf Director Of Land Acquisition Required: No Accompanied by: Self / Same As Patient Allergies moxifloxacin Allergy (Verified 02/08/25 11:35) Unknown nitrofurantoin Allergy (Verified 02/08/25 11:35) Unknown tetanus and diphtheria toxoids Allergy (Verified 02/08/25 11:35) Unknown HPI Comments Details: Ms. Barrett is a delightful 84-year-old female who has history of longstanding hypertension. She is a pre diabetic. She has history of 1 small kidney. She is known to have a carotid bruit and peripheral arterial disease and see Dr Hurtado. Her blood pressure is currently well controlled on medications. She has history of HUGO last year. She denies any coronary artery disease, congestive heart failure, syncope, orthostatic symptoms, cardiac arrhythmia, CVA, renal stone, new bone or back pain pain. She does not have any epistaxis, photosensitivity, new skin rashes, joint swellings, pedal edema or urinary symptoms. She is compliant with her medications. Her serum creatinine is currently close to baseline. She had seen Dr. Garnett estate tax examiner with [facility]. Her K is normal [facility] Medical History (Updated 01/23/24 @ 14:42 by Kiel Paris MD) Bilateral carotid artery stenosis Hypertension Hyperlipidemia Peripheral vascular disease Surgical History History of back surgery History of hysterectomy Family History Mother Heart disease Sister PAD (peripheral artery disease) CAD (coronary artery disease) Social History Alcohol intake: former Patient Tobacco Use Status: Former Tobacco user Review of Systems Const All systems reviewed & are unremarkable except as noted in HPI and below Physical Exam Vital Signs: Last Vital Signs Pulse 66 02/08/25 11:35 BP 102/54 L 02/08/25 11:35 Pulse Ox 100 02/08/25 11:35 Oxygen Delivery Method Room Air 02/08/25 11:35 BMI result Body Mass Index 28.6 Const General: comfortable and no acute distress Orientation/consciousness: patient oriented x3 HEENT Head: Yes normocephalic Mouth: Normal oral and palatal mucosa present Eyes EOM: EOMs intact bilaterally Neck Neck: Yes supple Resp Auscultation: clear to auscultation bilaterally Cardio Jugular venous distension: no JVD Rate: regular rate GI Palpation (GI): Soft to palpation Auscultation: normal bowel sounds General: Yes no CVA tenderness Back/Spine/Pelvis Back: no CVA tenderness Skin General skin exam: no rashes or lesions noted Neuro General: patient oriented x3 and moves all extremities Extrem General: Yes no pedal edema Results Reviewed Nephrology Results: Sodium, (135-145) 137 mmol/L 02/07/25 Potassium, (3.3-5.1) 4.5 mmol/L 02/07/25 Chloride, (96-108) 105 mmol/L 02/07/25 Carbon Dioxide, (22-29) 25 mmol/L 02/07/25 BUN, (9-16) 36 mg/dL H 02/07/25 Creatinine, (0.5-1.4) 1.21 mg/dL 02/07/25 Renal US 12/30/23 Assessment & Plan Assessment & Plan (1) CKD stage 3a, GFR 45-59 ml/min: Code(s): N18.31 - Chronic kidney disease, stage 3a Category: Medical (2) Hypertension: Code(s): I10 - Essential (primary) hypertension Category: Medical Qualifiers: Hypertension type: primary hypertension Qualified Code(s): I10 - Essential (primary) hypertension Plan 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 She has hypertension. She is known to have peripheral arterial disease and carotid bruit. She is tolerating angiotensin receptor sheila which I shall back off if her serum creatinine rises. She avoids nonsteroidal anti-inflammatories. She is not known to have any proteinuria. Clinically there is no indication for any angioplasty of renal artery even if she has significant stenosis given stable GFR , well controlled blood pressure without any history of heart failure. If indicated, I shall consider doing a formal renal angiogram in the future. She needs to keep her lipid profile optimal. All these have been explained in detail. All questions answered. Follow-up given Orders: Orders Blood Urea Nitrogen 6 Months I10 - Essential (primary) hypertension, N18.31 - Chronic kidney disease, stage 3a Creatinine 6 Months I10 - Essential (primary) hypertension, N18.31 - Chronic kidney disease, stage 3a Electrolytes 6 Months I10 - Essential (primary) hypertension, N18.31 - Chronic kidney disease, stage 3a Medications: Discontinued sodium polystyrene sulfonate Discontinued Reason: Doctor's Order 30 grams orally once a week; 453.6 grams 3RF Coding Level of Care Code Est Pt Level 4 (00053) Diagnoses CKD stage 3a, GFR 45-59 ml/min N18.31 Primary hypertension I10 Hypertension type: primary hypertension
[2025-02-08 11:35] VITALS: BP 102/54; PULSE 66; O2SAT 100; BMI 28.6
--- OUTSIDE RECORDS SUMMARY | 2025-02-08 14:19 | XMS_ITS | Patient Health Record ---
Author Organization [facility] Address [address] [place] [address] Care Team Providers Care Eyelet Cutter Name Role Phone Abraham Courtney MD Primary Care Provider Unavail able Greyson Byrne Unavailable [phone] Reason For Referral No Information Medications Medication SIG (Take, Route, Fr equency, Duration) Notes Start Date End Date Status Crestor Active Omeprazole Active Calcium Active Magnesium Active Fish Oil 1000 mg Act chidi Vitamin D Active Aspirin 81 mg Active Atenolol Active amLODIPine Besylate Active Losartan Potassium A ctive Problems Problem Type SNOMED Code ICD Code Onset Dates Problem Status W/U Status Risk Notes Problem Bursitis (14929769) Bursitis (727.3) Active confirmed Problem Hammer toe (904335074) Hammer toe (735.4) Active confirmed Problem Metatarsalgia (06257645) Metatarsalgia (726.70) Active confirmed Problem Pain in limb (22146349) Pain in Limb (729.5) Active confirmed Plan Of Treatment No Information Insurance Providers Payer Name Payer Address Payer Phone Subscriber Number Group Number Insured Name Patient Relationship to Insured Coverage Start Date Coverage End Date Medicare [facility] [address] [place] [phone] [id number] Anastasia Barrett Self - patient is the insured AARP Secondary to Medicare [address] [place] [address] [phone] [id number] Anastasia Barrett Self - patient is the insured Medical (General) History Medical History History ICD Code back, hip, knee pain broken bones hyperlipidemia cancer cataracts headaches/migraines hypertension sinus conditions chicken pox measles mumps joint implants/screws hx of stomach ulcer Surgical History Surgery Date(Month/Year) knee surgery cataract surgery leg surgery
--- OUTSIDE RECORDS SUMMARY | 2025-02-08 14:19 | XMS_ITS | Encounter Summary ---
Author Organization [facility] Address [address] [place] [address] Care Team Providers Care Logistics Administrator Name Role Phone Abraham Courtney MD Primary Care Provider + [phone] Reason for Visit * Reason Onset Date Comments Referral 07/07/2024 Sleep Medicine Encounter Details Date Type Department Care Team (Late st Contact Info) Description 07/07/2024 Telephone [facility] [address] [place] [address] Karla Norman MA Social History Tobacco Use Types Packs/Day Years Used Date Smoking Tobacco: Former Smokeless Tobacco: Never Alcohol Use Standard Drinks/Week Comments Never 0 (1 standard drink = 0.6 oz pur e alcohol) Comments Unknown Sex and Gender Information Value Date Recorded Sex Assigned at Not on file Legal Sex Female 9:53 AM EST Gender Identity Not on file Sexual Orientation Not on file documented as of this encounter Progress Notes * Karla Norman MA - 02/03/2025 11:06 AM EDT Patient had appointment 11/15/24 at 7:30pm and will need to repeat Sleep Study. * Karla Norman MA - 07/07/2024 10:08 AM EST Faxed over referral, demo, and ADRIEN to Sleep Medicine Services [phone]. documented in this encounter Plan of Treatment Upcoming Encounters Date Type Department Care Team (Late st Contact Info) Description 11/30/2025 1:30 PM EDT Ancillary Procedure [facility] [address] [place] [address] 01/02/2026 10:30 AM EDT Office Visit Vascular Surgery - [place] [address] [place] [address] Ayden Berg MD [address] [place] [phone] documented as of this encounter Visit Diagnoses Not on filedocumented in this encounter Care Teams Logistics Administrator Relationship Specialty Start Date End Date Abraham Courtney MD [address] [place] [id number] PCP - General Internal Medicine 12/20/24 documented as of this encounter
--- OUTSIDE RECORDS SUMMARY | 2025-02-08 14:19 | XMS_ITS | Clinical Summary ---
Author Organization LL [address] [place] [address] [place] [phone] Phone Care Team Providers Care Territory Sales Manager Name Role Phone Abraham Reyes MD Primary Care Provider + [phone] Allergies Active Allergy Reactions Criticality Noted Date Comments Moxifloxacin 02/05/2022 Nitrofurantoin Hives,Rash Medium 12/20/2024 Tetanus And Diphtheria Toxoids Low 02/05 Tetanus-Diphtheria Toxoids-Td 2018 Medications atorvastatin (LIPITOR) 80 mg tablet TAKE 1 TABLET BY MOUTH EVERY DAY NEED UPDATED INS 01/31/2023 Active spironolactone-h ydroCHLOROthiazi de (ALDACTAZIDE) 25-25 mg per tablet Take 1 tablet by mouth daily. Active losartan (COZAAR) 100 mg tablet Take 100 mg by mouth daily. Active omeprazole (PriLOSEC) [address] capsule Take 10 mg by mouth daily. Active carvediloL (COREG) 12.5 mg tablet Take 12.5 mg by mouth 2 times daily (with meals). Active aspirin 81 mg chewable tablet Take 81 mg by mouth daily. Active sodium polystyrene (KAYEXALATE) powder Take 30 g by mouth 1 (one) time. Active cholecalciferol (VITAMIN D-3) 50 mcg (2,000 unit) tablet Take 1 tablet (2,000 Units total) by mouth 1 (one) time each day. Active amLODIPine (NORVASC) 10 mg tablet Take 1 tablet (10 mg total) by mouth 1 (one) time each day. Active Active Problems Problem Noted Date Diagnosed [...] engage in routine aerobic exercise as tolerated. Assessment & Plan (12/20/2024 10:42 AM EDT): Pressure is well-controlled today, 120/66. Continue on current antihypertensive medication regimen. Continue follow-up with renal. Creatinine stable on last blood work reviewed from July 2024. Patient congratulated on her continued efforts on lifestyle changes. She will continue to check her blood pressure periodically and notify the office if her blood pressure is regularly elevated over 140/80. I have reviewed with the patient the importance of a heart healthy lifestyle which includes eating a low-fat low-salt diet, getting regular exercise, maintaining a healthy weight, not smoking, and following up with routine medical care. Bilateral carotid artery stenosis 08/31/2018 Overview (05/05/2024): Last Assessment & Plan: Bilateral carotid bruits appreciated upon exam today. Right greater than left. Patient is now ready to pursue follow-up with Dr. Flowers for right carotid endarterectomy. She will continue on aspirin and statin therapy. Encounters Date Type Department Care Team Description 12/31/2024 10:30 AM EDT Office Visit Vascular Surgery - [place] [address] [place] [phone] Ayden Berg MD Bilateral carotid artery stenosis (Primary Dx) 12/31/2024 Telephone Gastroenterology - [address] [place] [phone] Anders Scott MD 12/20/2024 9:40 AM EDT Office Visit [facility] Cardiology [facility] [address] [place] [phone] Jennifer Mccormick NP Hypertension, unspecified type (Primary Dx); Hyperlipidemia, unspecified hyperlipidemia type 11/30/2024 12:00 PM EDT Ancillary Procedure [facility] Cardiology [facility] - [address] [place] [phone] Bilateral carotid artery stenosis 11/30/2024 Telephone [facility] Cardiology [facility] - [address] [place] [phone] Wendy Castañeda from Last 3 Months Medical History Medical History Date Comments Bilateral carotid artery stenosis 08/31/2018 DX:Bilateral carotid artery stenosis HTN (hypertension) 02/15/2019 DX:HTN (hyper tension) Family History Medical History Relation Name Comments CABG Mother Other: Cardiac Other Relation Name Status Comments Mother Other Social History Tobacco Use Types Packs/Day Years Used Date Smoking Tobacco: Former Smokeless Tobacco: Never Tobacco Cessation:Counseling Given: Not Answered Alcohol Use Standard Drinks/Week Comments Never 0 (1 standard drink = 0.6 oz pur e alcohol) Comments Unknown Sex and Gender Information Value Date Recorded Sex Assigned at Not on file Legal Sex Female 9:53 AM EST Gender Identity Not on file Sexual Orientation Not on file Obstetrics History Last Filed Vital Signs Vital Sign Reading Time Taken Comments Blood Pressure 120/60 12/31/2024 10:37 AM EDT Pulse 64 12/31/2024 10:37 AM EDT Temperature - - Respiratory Rate 16 12/31/2024 10:37 AM EDT Oxygen Saturation 99% 12/20/2024 9:26 AM EDT Inhaled Oxygen Concentration - - Weight 74.4 kg (164 lb) 12/31/2024 10:37 AM EDT Height 160 cm (5' 3 ) 12/31/2024 10:37 AM EDT Body Mass Index 29.05 12/31/2024 10:37 AM EDT Plan of Treatment Upcoming Encounters Date Type Department Care Team (Late st Contact Info) Description 11/30/2025 1:30 PM EDT Ancillary Procedure [facility] [address] [place] [phone] 01/02/2026 10:30 AM EDT Office Visit Vascular Surgery - [place] [address] [place] [phone] Ayden Berg MD [address] [place] [phone] Health Maintenance Due Date Last Done Comments DTaP,Tdap,and Td Vaccines (1 - Tdap) 1961 Pneumococcal Vaccine: 50+ Years (1 of 1 - PCV) 1992 Zoster Vaccines (1 of 2) 1992 RSV Immunization Adult Patients (1 - 1-dose 75+ series) 2017 Falls Risk Assessment 04/26/2022 Medicare Annual Wellness Visit 04/26/2022 Social Influencers of Health Screening 04/26/2022 Depression Screening 05/19/2024 COVID-19 Vaccine ( season) 2025 03/06/2023, 02/20/2022, 11/13/2021, Additional history exists Influenza Vaccine (#1) 2025 , 02/27/2023, 03/15/2022, Additional history exists Hypertension/CHF/CAD Annual BMP Blood Test 03/30/2025 03/30/2024, 04/25/2023 Cholesterol Screening (Lipid Panel) 08/12/2028 08/13/2023 Osteoporosis Screening (Bone Density Screening) 12/01/2033 12/02/2023, 02/05/2019 HIB Vaccines Aged Out No longer eligi [...] age to complete this topic Meningococcal B Vaccine Aged Out No l onger eligible based on patient's age to complete this topic RSV Immunization Patients Under 20 months Aged Out No longer eligible based on patient's age to complete this topic Varicella Vaccines Aged Out No longer eligible based on patient's age to complete this topic Procedures Procedure Name Priority Date/Time Associated Diagnosis Comments VAS US DUPLEX CAROTID BILATERAL Routine 11/30/2024 10:26 AM EDT Bilateral carotid artery stenosis CREATININE, SERUM Routine 03/30/2024 10: 30 AM EST Hyperkaluria Chronic kidney disease, stage 3a (CMS/HCC V24, CMS/HCC V28) Hypertension, essential MANUELA DEXA AXIAL SKELETON Routine 12/02/2023 8:38 AM EDT Age-related osteoporosis without current pathological fracture LIPID PANEL Routine 08/13/2023 from Last 3 Months or Most Recently Relevant to Health Maintenance Results * Vascular US duplex carotid bilateral (11/30/2024 10:26 AM EDT) Left CCA dist fowler 17 cm/s CV [facility] LAB Left CCA dist sys 87 cm/s CV [facility] LEFT COMMON CAROTID ARTERY MID D 17 cm/s CV [facility] LAB LEFT COMMON CAROTID ARTERY MID S 100 cm/s CV V[facility] LAB Left CCA prox fowler 16 cm/s CV VAS LAB Left CCA prox sys 176 cm/s CV [facility] LAB LEFT EXTERNAL CAROTID ARTERY D 17 cm/s CV V[facility] LAB Left ECA sys 271 cm/s CV VAS LAB Left ICA/CCA sys 2.20 no units CV V[facility] LAB Left ICA dist fowler 37 cm/s CV V[facility] LAB Left ICA dist sys 123 cm/s CV VAS LAB Left ICA mid fowler 40 cm/s CV V[facility] LAB Left ICA mid sys 193 cm/s CV VAS LAB Left ICA prox fowler 37 cm/s CV VAS LAB Left ICA prox sys 142 cm/s CV V[facility] LAB Left vertebral sys 62 cm/s CV V[facility] LAB Right CCA dist fowler 11 cm/s CV VAS LAB Right cca dist sys 33 cm/s CV V[facility] LAB RIGHT COMMON CAROTID ARTERY MID D 8 cm/s CV VAS LAB RIGHT COMMON CAROTID ARTERY MID S 49 cm/s CV VAS LAB Right CCA prox fowler 10 cm/s CV VAS LAB Right CCA prox sys 133 cm/s CV VAS LAB RIGHT EXTERNAL CAROTID ARTERY D 7 cm/s CV VAS LAB Right eca sys 62 cm/s CV VAS LAB Right ICA/CCA sys 10.50 no units CV V[facility] LAB Right ICA dist fowler 30 cm/s CV VAS LAB Right ICA dist sys 80 cm/s CV VAS LAB Right ICA mid fowler 12 cm/s CV VAS LAB Right ICA mid sys 58 cm/s CV VAS LAB Right ICA prox fowler 64 cm/s CV VAS LAB Right ICA prox sys 343 cm/s CV V[facility] LAB Right vertebral sys 96 cm/s CV [facility] LAB Left Prox Subclavian PSV 157 cm/s CV [facility] Right Prox Subclavian PSV 246 cm/s CV [facility] Right arm BP 136 mmHg CV V[facility] LAB Left arm BP 136 mmHg CV [facility] LAB Anatomical Region Laterality Modality Vascular, Abdomen Ultrasound Narrative 11/30/2024 2:33 PM EDT Right Right ICA has significant plaques with greater than 70% stenosis. Right subclavian artery has elevated flow velocity. Antegrade right vertebral flow. Left Left ICA has 50 to 69% stenosis. Left subclavian artery has normal flow velocity. Antegrade left vertebral flow. Compared to previous study of 08/17/2021, there are no significant changes. Right Carotid The CCA has no significant plaque. The bifurcation has moderate calcific plaque with acoustic shadowing. The proximal ICA has moderate calcific plaque with acoustic shadowing. The mid ICA is tortuous. The ECA has moderate calcific plaque. Right BP= 136/51 Vertebral flow is antegrade. Left Carotid The CCA has no significant plaque. The proximal ICA has moderate heterogeneous plaque. The ECA has mild heterogeneous plaque. Left BP= 136/55 Vertebral flow is antegrade. Differential Tester Details A reddy scale, color and doppler analysis ultrasound was performed. During the study longitudinal and transverse views were obtained. Pulsed wave doppler was performed. us Ayden Berg MD CV VASCULAR PROCEDURES Final Re sult * (ABNORMAL) Creatinine (03/30/2024 10:30 AM EST) Creatinine 1.26(H) 0.50 - 1.10 mg/dL LAB CHEMISTRY METHOD 03/30/2024 11:58 AM EST [facility] eGFR 43(L) >=60 mL/min/1. 73m2 LAB CHEMISTRY METHOD 03/30/2024 11:58 AM EST [facility] Comment:Calculation based on the Chronic Kidney Disease Epidemiology Collaboration (CKD-EPI) equation refit without adjustment for race. Blood Venous blood specimen / Unknown Venipuncture / Unknown 03/30/2024 10:30 AM EST 03/30/2024 10:58 AM EST us Kiel Paris MD LAB BLOOD ORDERABLES Final Resul t [facility] [address] [place] [address], * MANUELA DEXA AXIAL SKELETON (12/02/2023 8:38 AM EDT) Anatomical Region Laterality Modality Mammography 12/01/2023 1:43 PM EDT Narrative 12/02/2023 8:[address] [facility] Diagnostic Imaging Department [address] [place] [address] Patient: ANASTASIA BELL /Age/Sex: 1940 - 83 - F Unit#: [id number] [facility] Ordering Physician: ABRAHAM REYES MD [facility] Dexa Axial Skeleton - 12/01/231419 Report Status:Signed HISTORY: The patient is an 1.712-oykv-nid postmenopausal female with clinical concern for metabolic bone disease. FINDINGS: Dual [...] 82% of that of age matched controls. This yields a T-score of -2.0 and a Z-score of -1.3 which is diagnostic of osteopenia. However, the T-score of the left femoral neck is -2.8 which is diagnostic of osteoporosis. IMPRESSION: 1. Osteoporosis. There has been a decrease of 5.9% in bone mineral density in the lumbar spine since the prior examination of 02/05/2019. There has been an increase of 0.6% in bone mineral density in the right femur and a decrease of 12.4% in bone mineral density in the left femur. 2. FRAX analysis yields a 10-year probability of major osteoporotic fracture of 6.8% and a 10-year probability of hip fracture of 1.9%. Code 18498 Dictating Physician: OCTAVIA PUGA MD Electronically Signed by: OCTAVIA PUGA MD Dic Date/Time: 12/02/23836 Sign date/Time: 12/02/23837 Procedure Note Octavia Puga MD - 03/03/2024 [facility] Diagnostic Imaging Department [address] [place] [id number] Patient: ANASTASIA BELL Heather Williamson./Age/Sex: 1940 - 83 - F Unit#: [id number] Location/Status: [facility] CLI Mnemonic/Ordering Site: [facility] Ordering Physician: ABRAHAM REYES MD [facility] Dexa Axial Skeleton - 12/01/23 - [id number] Report Status:Signed HISTORY: The patient is an 1.631-kcjm-tzd postmenopausal female withclinical concern for metabolic bone [...] density of the femurs bilaterally is 0.761 gm/hv0bvufr is 76% of that of young normals [...] probability of hip fracture of 1.9%. Code 03740 Dictating Physician: OCTAVIA PUGA MD Electronically Signed by: OCTAVIA PUGA MD Dic Date/Time: 12/02/23836 Sign date/Time: 12/02/23837 Abraham Reyes MD IMG BI PROCEDURES Final Resu lt * Lipid panel (08/13/2023) LDL/HDL Ratio 3 0 - 4 Triglycerides 82 0 - 150 mg/dL Cholesterol 160 0 - 200 mg/dL HDL 58 >=40 mg/dL LDL Cholesterol 86 0 - 100 mg/dL Blood Venous blood specimen / Unknown Historical Provider LAB BLOOD ORDERABLES Isa l Result from Last 3 Months or Most Recently Relevant to Health Maintenance Insurance [employer] [place] [phone] Care Teams Territory Sales Manager Relationship Specialty Start Date End Date Abraham Reyes MD [address] [place] [address] PCP - General Internal Medicine 12/20/24
--- OUTSIDE RECORDS SUMMARY | 2025-02-08 14:19 | XMS_ITS | Clinical Summary ---
Author Organization [facility] Address [address] [place] [address] Care Team Providers Care Mica Inspector Name Role Phone Abraham Courtney MD Primary Care Provider + [phone] Medications Medication Sig Dispensed Refills Start Date [...] 1-dose 75+ series) 2017 Influenza Vaccine (#1) 2025 Hepatitis B Vaccines Aged Out No long er eligible based on patient's age to complete this topic RSV Ped < 20 months Aged Out No longe r eligible based on patient's age to complete this topic Care Teams Mica Inspector Relationship Specialty Start Date End Date Abraham Courtney MD PCP - General Internal Medicine 10/24/16
--- OUTSIDE RECORDS SUMMARY | 2025-02-08 14:19 | XMS_ITS | Patient Health Record ---
Author Organization [facility] Address [address] [place] [phone] Care Team Providers Care Statistician Applied Name Role Phone FRANCIE REYES Primary Care Provider [phone] GIOVANI, NURSING Unavailable [phone] ALLERGIES Allergen (clinical drug ingredient) Drug/Non Drug Allergy documented on EMR Reaction Allergy Type Onset Date Status DPT (uncoded) Unknown Allergy Active nitrofurantoin, macrocrystals / nitrofurantoin, monohydrate Nitrofurantoin Monohyd Macro hives Drug Allergy Active REASON FOR REFERRAL Reason Nano neurology [facility] for movement tremor evaluation Diagnosis 1 Tremor, unspecified (R25.1) Referral Organization [facility] Referring Provider First Name FRANCIE Referring Provider Last Name ERIC Referring Provider Speciality Internal edicine Referred Provider MARIAH STAHL Referred Provider Specialty Nephrology General Notes Katerina THOMPSON [place] 05/19 11:16:19 PM > faxed to Dr Stahl's office Referral Priority Routine Reason 12/29/24 w appt Refe rral to [facility] for colonoscopy Diagnosis 1 Colon cancer screeni ng (Z12.11) Referral Organization [facility] Referring Provider First Name FRANCIE Referring Provider Last Name ERIC Referring Provider Speciality Internal edicine Referred Provider JESSICA ABDI Referred Provider Specialty Gastroentero logy General Notes Pat THOMPSON 12:50:37 PM > Faxed medical referral, note and most recent labs to [phone] Referral Priority Routine MEDICATIONS Medication SIG (Take, Route, Frequency, Duration) Notes Start Date End Date Status Multivitamin - 1 tablet Orally Once a day for 30 day(s) Active Losartan Potassium-HCTZ 100- 25 MG TAKE 1 TABLET BY MOUTH EVERY DAY Orally Once a day for 90 days Active Pantoprazole Sodium 20 MG TAKE 1 TABLET BY MOUTH EVERY DAY for 90 Active hydroCHLOROthiazide 25 MG 1 tablet in th e morning Orally Once a day for 30 day(s) Active Spironolactone 25 MG TAKE 1 TABLET BY MOUTH EVERY DAY FOR 90 DAYS for 90 Active Vitamin D3 25 MCG (1000 UT) 1 tab(s) ora lly once a day Active Atorvastatin Calcium 80 MG TAKE 1 TABLET BY MOUTH EVERY DAY for 90 Active Sodium Polystyrene Sulfonate 30 GM/120ML 120 mL Rectal every 6 hrs for 30 day(s) Active Aspir-Low 81 MG 1 tab(s) orally once a day Active amLODIPine Besylate 10 MG TAKE 1 TABLET BY MOUTH EVERY DAY for 90 Active Carvedilol 12.5 MG TAKE 1 TABLET BY MOUTH TWICE A DAY for 90 Active Alendronate Sodium 70 MG TAKE 1 TABLET B Y MOUTH 30 MINUTES BEFORE FIRST FOOD, BEVERAGE OR MEDICINE WITH PLAIN WATER WEEKLY for 90 Active IMMUNIZATIONS Vaccine Route Administration Date Status Comme nts Influenza, Fluzone HD 65+ IM Intramuscular 06/02/2024 Admi nistered SOCIAL HISTORY Tobacco Use: Social History Observation Description Date Details (start date - stop date) Former Smoker NA - NA Sex Assigned At : Social History Observation Description Sex Assigned At Unknown Smoking Question Answer Notes Are you a: former smoker How long has it been since you last smoked? > 10 years Section Notes: p p p p PROBLEMS Problem Type ICD Code Onset Dates Problem Status W/U Status Risk SNOMED Code Notes Problem Hypertension (401.9) Active confirmed Hypertension (12371942) Problem GERD [Gastroesophageal reflux disease] (530.81) Active confirmed Gastroesophagea l reflux disease (disorder) (629591876) Problem Olecranon bursitis (726.33) Active confirmed Olecranon bursi tis (540593503) Problem Cough (786.2) Active confirmed Cough (4 7146132) Problem Gastro-esophageal reflux disease without esophagitis (K21.9) Active confirmed Gastro-esophage al reflux disease without esophagitis (230516676) Problem Essential (primary) hypertension (I10) Active confirmed Essential hypertension (32426319) Problem Type 2 diabetes mellitus without complications (E11.9) Active confirmed Type II diabete s mellitus without complication (328547183) Problem Chronic kidney disease, unspecified (N18.9) Active confirmed Chronic kidney disease (566373117) Problem Disorder of lipoprotein metabolism, unspecified (E78.9) Active confirmed Disorder of lipoprotein storage and metabolism (disorder) (632669790) Problem Other chronic pain (G89.29) Active confirmed 06030688 Problem Cerebrovascular disease, unspecified (I67.9) Active confirmed Cerebrovascular disease (45799060) Problem Mild anemia (D64.9) Active confirmed 158456565 Problem 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) Active confirmed 100991360 VITAL SIGNS Blood pressure diastolic 62 mm Hg 12/29/2024 Height 61.25 in 12/29/2024 Blood pressure systolic 138 mm Hg 12/29/2024 Weight 162.2 lbs 12/29/2024 BMI 30.39 kg/m2 12/29/2024 Encounters Encounter Location Date Provider Diagnosis [place] [id number]/02/2024 FRANCIE REYES Essential (primary) hypertension I10 ; Disorder of lipoprotein metabolism, unspecified E78.9 ; Gastro-esophageal reflux disease without esophagitis K21.9 ; Type 2 diabetes mellitus without complications E11.9 ; Chronic kidney disease, unspecified N18.9 ; Cerebrovascular disease, unspecified I67.9 ; Pain in left knee M25.562 ; Pain in right knee M25.561 ; Palpitations R00.2 and Tremor, unspecified R25.1 [place] [id number] 06/02/2024 NURSING [place] Encounter for administration of vaccine Z23 [place] [id number]/02/2024 NURSING [place] [id number]/03/2024 FRANCIE REYES [place] [id number]/17/2024 FRANCI[address] REYES [address] [address] 11/25/2024 FRANCIE REYES Essential (primary) hypertension I10 ; Disorder of lipoprotein metabolism, unspecified E78.9 ; Gastro-esophageal reflux disease without esophagitis K21.9 ; Cerebrovascular disease, unspecified I67.9 ; Chronic kidney disease, unspecified N18.9 ; Type 2 diabetes mellitus without complications E11.9 and Cardiac murmur, unspecified R01.[address] [address] 11/25/2024 FRANCIE REYES [facility] [address] [place] [phone] 11/26/2024 FRANCIE REYES [place] [id number] 11/26/2024 FRANCIE REYES Mild anemia D64.[address] [place] [address] 12/02/2024 FRANCIE REYES [address], [phone] 12/29/2024 FRANCIE REYES [place] [id number] 12/29/2024 FRANCIE REYES Acute diarrhea R19.7 ; Essential (primary) hypertension I10 ; Disorder of lipoprotein metabolism, unspecified E78.9 ; Gastro-esophageal reflux disease without esophagitis K21.9 ; Type 2 diabetes mellitus without complications E11.9 ; Chronic kidney disease, unspecified N18.9 and Colon cancer screening Z12.[address], [phone] 12/30/2024 FRANCIE REYES Deficiency of other specified B group vitamins E53.8 and Mild anemia D64.9 ASSESSMENTS Encounter Date Diagnosis Assessment Notes Treatment Notes Treatment Clinical Notes Section Notes 06/02/2024 Essential (primary) hypertension (ICD-10 - I10) Blood pressure on recheck still elevated. Initially when she came in was normal. She was seen last week by renal she said her pressure was 130/80. Because of the discrepancy we will set up a 24-hour blood pressure monitor 06/02/2024 Disorder of lipoprotein metabolism, unspecified (ICD-10 - E78.9) Continue statin therapy. LDL goal less than 70. 06/02/2024 Encounter for administration of vaccine (ICD-10 - Z23) VIS provided to patient HD influenza vaccine administered patient counseled 11/25/2024 Essential (primary) hypertension (ICD-10 - I10) Blood pressure not bad but not optimal either therefore will increase losartan/HCTZ 12 100/25 monitor blood pressure at home over the next couple weeks if it comes down under 130 systolic then we will keep her on that dose 11/25/2024 Disorder of lipoprotein metabolism, unspecified (ICD-10 - E78.9) Check lipid profile continue statin LDL goal less than 70 follow-up in 6 months 11/26/2024 Mild anemia (ICD-10 - D64.9) 12/29/2024 Essential (primary) hypertension (ICD-10 - I10) Blood pressure stable well-controlled no change in therapy 12/29/2024 Acute diarrhea (ICD-10 - R19.7) Probable acute infectious diarrhea. Therefore bland diet. No dairy for at least 3 to 4 days. Keep well-hydrated. Can use muin-jgw-qjewutq Imodium to slow things down little bit check CBC electrolytes. 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 Dietary recommendations. As needed PPI 11/25/2024 Gastro-esophageal reflux disease without esophagitis (ICD-10 - K21.9) Stable doing well no symptoms physical exam normal 06/02/2024 Type 2 diabetes mellitus without complications (ICD-10 - E11.9) No polyuria polydipsia no neurologic symptoms no ophthalmologic symptoms check A1c 12/29/2024 Gastro-esophageal reflux disease without esophagitis (ICD-10 - K21.9) 11/25/2024 Cerebrovascular disease, unspecified (ICD-10 - I67.9) Stable. Reviewed baby aspirin statin medication LDL goal less than 70. Await vascular surgical input and ultrasound update 12/29/2024 Type 2 diabetes mellitus without complications (ICD-10 - E11.9) Stable doing well check blood sugar follow-up A1c every 6 months 11/25/2024 Chronic kidney disease, unspecified (ICD-10 - N18.9) Blood pressure control continue follow-up with Dr. Paris check labs 06/02/2024 Chronic kidney disease, unspecified (ICD-10 - N18.9) Stable. Follow-up renal. Blood pressure control. Avoid NSAIDs avoid IVP dyes 11/25/2024 Type 2 diabetes mellitus without complications (ICD-10 - E11.9) Stable. Check A1c check blood sugar 06/02/2024 Cerebrovascular disease, unspecified (ICD-10 - I67.9) Continue baby aspirin. Continue statin therapy. Follow-up Dr. Campos potential endarterectomy in the near future 12/29/2024 Chronic kidney disease, unspecified (ICD-10 - N18.9) 11/25/2024 Cardiac murmur, unspecified (ICD-10 - R01.1) No CHF no chest pain. Physical exam unchanged recheck cardiac echo 12/29/2024 Colon cancer screening (ICD-10 - Z12.11) Referral to [facility] for colonoscopy 06/02/2024 Pain in left knee (ICD-10 - M25.562) Probable osteoarthritis check x-ray 06/02/2024 Pain in right knee (ICD-10 - M25.561) Same as above 06/02/2024 Palpitations (ICD-10 - R00.2) Check EKG. Blood pressure moderately elevated today check labs including TSH 06/02/2024 Tremor, unspecified (ICD-10 - R25.1) Check CT of the head check TSH. Follow-up neurology Dr. Mcgill continue beta-sheila 11/25/2024 Other Offered patient orthopedic consultation for possible injection. She declines at the present time she will call if she feels like it is getting worse PLAN OF TREATMENT Pending Test Test Name Order Date 24 hour ambulatory blood pressure monito r 06/02/2024 Echocardiogram 11/25/2024 XR Knee Left 2 views 11/24/2023 CT Head (Brain) without IV contrast 10/18 Future Test Test Name Order Date Methylmalonic Acid, Serum-696509 024 Homocyst(e)ine-016284 11/10/2023 Iron and TIBC-758044 11/26/2024 Ferritin-553263 11/26/2024 Reticulocyte Count-323997 11/26/2024 Iron and TIBC-002644 12/30/2024 Vitamin O23-963566 12/30/2024 Folate (Folic Acid), Serum-658053 2024 Ferritin-477464 12/30/2024 Reticulocyte Count-960848 12/30/2024 Next Appt Details Provider Name:FRANCIE WASHINGTON SKYLA, 07/05/2025 11:30:00 AM, [address] [facility], [place], [address], Insurance Providers Payer Name Payer Address Payer Phone Subscriber Number Group Number Insured Name Patient Relationship to Insured Coverage Start Date Coverage End Date [facility] MEDIC[facility] ADVANTAGE [address] [place] [address] [id number] NICHELLE BELL Self - patient is the insured 3 MEDICAL (GENERAL) HISTORY Medical History History ICD Code allergies hypertension Gastroesophageal reflux disease (GERD) hyperlipidemia Uterine Cancer GERD Colon: 11/05 Dr Scott 5mm polyp adenoma Luis Miguel carotid disease ; CTA ne ck: 75% Right ICA stenosis and 50% complex left ICA stenosis 08/08 Dr Berg, vascular PVD Former tobacco abuse Essential tremor; Dr Sim 03/08 Echo : 03/09 EF 55-60%; no significant v alvular disease Nuclear stress 03/09 : no ischemia, LVEF 83% Lipids: 779-178-55-105; 09/08 BUN/creat: 41/1.6 09/08 Immun: Pneumoccal; x 2; TD 2014; Covid CKD Mammo November 2023 CT ABD & [facility] 07/10; no calculus or obst ruction Ct Head 09/06 no acute processes BMD 02/04; osteopenia: FRAX 5.5 and 1.2% Adenosine stress test November 2023 negative Cardiac echo August 2023 LVH normal EF mi ld MR Carotid ultrasound November 2023 right internal carotid artery greater than 70% left 50 to 69% Bone density November 2023 for osteoporosis Renal ultrasound December 2023 negative fo r renal artery stenosis Head CT May 2024 negative Surgical History Surgery Date(Month/Year) Cataract partial hysterectomy 1960 Hospitalization History Reason Date(Month/Year) Radha 04/08/23
--- OUTSIDE RECORDS SUMMARY | 2025-02-08 14:20 | XMS_ITS | Clinical Summary ---
Author Organization [facility] Address [address] [facility] [address] [place] [address] Phone Care Team Providers Care Kapok Machine Operator Name Role Phone Abraham Courtney MD Primary Care Provider Medications aspirin (ST SHADIA) 81 MG EC tablet Take 1 tablet by mouth 1 (one) time each day Active losartan (COZAAR) 100 MG tablet Take 1 tablet by mouth 1 (one) time each day 03/24/2015 Active amLODIPine (NORVASC) 10 MG tablet Take 1 tablet by mouth 1 (one) time each day Active carvedilol (COREG) 12.5 MG tablet Take 12.5 mg by mouth in the morning and 12.5 mg in the evening. Take with meals. Active hydroCHLOROthia zide 25 MG tablet Take 25 mg by mouth 1 (one) time each day Active atorvastatin (LIPITOR) 80 MG tablet Take 80 mg by mouth 1 (one) time each day Active Active Problems Problem Noted Date Diagnosed Date Benign essential hypertension 09/27/2022 Chronic kidney disease stage 2 09/27/2022 Hyperlipidemia 09/27/2022 Encounters Date Type Department Care Team Description 11/26/2024 Office Communication [facility] [address] [facility] [address] [place] [address] Momo Gonzalez MD from Last 3 Months Family History Medical History Relation Comments Cancer Father Diabetes Mother Heart disease Mother Hypertension Sibling 1 Heart disease Sibling 2 Stroke Sibling 3 Diabetes Sibling 4 brother sister Relation Status Comments Father Mother Alive Sibling 1 Sibling 2 Sibling 3 Sibling 4 Social History Tobacco Use Types Packs/Day Years Used Date Smoking Tobacco: Former Alcohol Use Standard Drinks/Week Comments No 0 (1 standard drink = 0.6 oz pur e alcohol) Comments Unknown Sex and Gender Information Value Date Recorded Sex Assigned at Not on file Legal Sex Female 5:12 PM EST Gender Identity Not on file Sexual Orientation Not on file Plan of Treatment Health Maintenance Due Date Last Done Comments Pneumococcal Vaccine: 50+ Ye ars (1 of 2 - PCV) 1959 Influenza Vaccine (#1) 2025 Hepatitis B Vaccine Aged Out No longe r eligible based on patient's age to complete this topic Insurance [facility] Care Teams Kapok Machine Operator Relationship Specialty Start Date End Date Abraham Courtney MD [address] [place] [address] PCP - General Internal Medicine 09/27/22
== END 2025-02-08 11:50 | disposition home or self-care (01) ==
LOC: HO.HKAS 11:26
PROVIDERS: PCP Internal Medicine; Visit Provider Internal Medicine Nephrology
DX: N18.31 Chronic kidney disease, stage 3a (principal); I10 Essential (primary) hypertension
CPT/HCPCS: 99214

== ENCOUNTER → 2025-02-08 11:25 | Outpatient (BNVA) | payer MEDICARE, SELFPAY | PROVIDERS: PCP Internal Medicine; Visit Provider Internal Medicine Nephrology | DX: I12.9 Hypertensive chronic kidney disease with stage 1 through stage 4 chronic kidney disease, or unspecified chronic kidney disease (principal); N18.31 Chronic kidney disease, stage 3a | CPT/HCPCS: 99212 ==